=== PATIENT | female | born 1995 | race Caucasian/White ===

== ENCOUNTER 2025-05-03 08:42 | Emergency (ER) | payer MEDICAID ==
[~2025-05-03] VITALS: Ht 157.5 cm; Wt 81.8 kg
[2025-05-03 10:53] LABS: MEAN PLATELET VOLUME 7.8 FL (7.4-10.4); RED CELL DISTRIBUTION WIDTH 13.7 % (11.5-14.5)
[2025-05-03 10:53] LABS: LEUKOCYTE ESTERASE ,URINE NEGATIVE (Neg); NITRITES, URINE NEGATIVE (Neg); OCCULT BLOOD,URINE LARGE (Neg)
[2025-05-03 10:56] LABS: UA COLLECTION TYPE CLN CATCH MIDSTREAM
[2025-05-03 10:58] LABS: SQUAMOUS EPITHELIAL CELL,UR NONE SEEN /LPF (FEW)
[2025-05-03 11:06] LABS: CREATININE 0.53 MG/DL (0.40-0.90); TOTAL CARBON DIOXIDE 29.3 MMOL/L (24-32); eCRCL 124 ML/MIN; eGFR > 90 ML/MIN
--- NOTE | 2025-05-03 11:46 | RADIOLOGY REPORT ---
OB ULTRASOUND <14 WEEKS: HISTORY: Bleeding vaginally TECHNIQUE: Multiple real-time grayscale sonographic images of the pelvis with duplex Doppler color flow, spectral and M-mode analysis. TRANSDUCERS: Transabdominal and transvaginal COMPARISON: None FINDINGS: The uterus measures 10.5 x 4.9 x 6.2 cm The cervix is not visualized Right ovary measures 3.1 x 2.1 x 1.8 cm with normal Doppler color flow. Left ovary measures 4.3 x 2.5 x 3.6 cm with normal Doppler color flow. No intrauterine is visualized. IMPRESSION: No intrauterine is visualized at this time. Clinical correlation advised. Recommend correlation with beta HCG.
--- NOTE | 2025-05-03 12:18 | Physician Documentation ---
History of Present Illness ~ Chief Complaint: Complications Stated Complaint: VAGINAL BLEEDING Time Seen by : 09:24 Mode of Arrival: POV HPI Patient came to the emergency room ambulatory for vaginal bleeding. She is supposed to be five weeks confirmed by the urgent care. Medication Reconciliation Allergies: Coded Allergies: No Known Allergies (Unverified , 05/03/25) Past Medical History Smoking Status: Never smoker Physical Exam Physical Exam Vital Signs: Temperature: 98.0, Heart Rate: 66, Respiratory Rate: 16, BP: 128/77, Pulse Oximetry: 100, Weight: 81.820 Oxygen Flow Rate: 0 Progress Results/Orders Results/Orders Orders - ELIGIO KRISHNA MD US OB (05/03/25 10:25) Completed Orders - ELIGIO KRISHNA MD Cbc/Diff (05/03/25 10:25) CMP (05/03/25 10:25) Hcg Serum Qt (05/03/25 10:25) Abo/Rh (Type Only) (05/03/25 10:25) US OB (05/03/25 10:25) Ua With Microscopic (05/03/25 10:39) Vital Signs 05/03/25 05/03/25 05/03/25 05/03/25 08:46 09:21 10:41 11:23 Temp 98.0 Pulse 69 60 66 Resp 16 18 16 16 B/P (MAP) 132/97 106/58 (74) 128/77 (94) Pulse Ox 99 99 100 O2 Flow Rate 0 0 0 05/03/25 12:22 Temp 98.2 Pulse 63 Resp 18 B/P (MAP) 159/94 Pulse Ox 98 Laboratory Tests Test 05/03/25 10:39 05/03/25 10:41 Urine Specimen Description Cln catch midstream Urine Color Yellow Urine Clarity Slightly cloudy Urine pH 7.5 Urine Specific [place] 1.015 Urine Protein Trace Urine Glucose (UA) Negative Urine Ketones Negative Urine Occult Blood Large H Urine Nitrite Negative Urine Bilirubin Negative Urine Urobilinogen 0.2 Urine Leukocyte Esterase Negative Urine RBC 50-100 Urine WBC 0-4 Urine Squamous Epithelial Cells None seen Urine Bacteria None seen Volume Urine Centrifuged 10 ml Urine Comment White Blood Count 6.8 Red Blood Count 4.14 L Hemoglobin 12.9 Hematocrit 37.7 Mean Corpuscular Volume 91.0 Mean Corpuscular Hemoglobin 31.2 H Mean Corpuscular Hemoglobin Concent 34.3 Red Cell Distribution Width 13.7 Platelet Count 263 Mean Platelet Volume 7.8 Neutrophils (%) (Auto) 73.6 Lymphocytes (%) (Auto) 17.7 L Monocytes (%) (Auto) 6.0 Eosinophils (%) (Auto) 2.0 Basophils (%) (Auto) 0.7 Neutrophils # (Auto) 5.0 Lymphocytes # (Auto) 1.2 Monocytes # (Auto) 0.4 Eosinophils # (Auto) 0.1 Basophils # (Auto) 0.0 CBC Comment Sodium Level 142 Potassium Level 3.7 Chloride Level 109 H Carbon Dioxide Level 29.3 Anion Gap 4 L Blood Urea Nitrogen 7 Creatinine 0.53 Estimated GFR/1.73 m2 > 90 BUN/Creatinine Ratio 13.2 Glucose Level 92 Calcium Level 8.4 L Total Bilirubin 0.3 Aspartate Amino Transf (AST/SGOT) 21 Alanine Aminotransferase (ALT/SGPT) 35 Alkaline Phosphatase 68 Total Protein 6.9 Albumin 3.3 L Globulin 3.6 Albumin/Globulin Ratio 0.9 L HCG Beta Subunit 24 Chemistry Comments Medical Decision Making Findings ER Course/Med. Decision Making REVIEW of RECORD(S): Previous medical records here and/or external medical records, such as that provided directly by the patient, by EMS and/or outside medical facilities, if available, were reviewed. COMORBIDITIES probable MDM During the physical examination, the findings suggestive of acute life- threatening condition such as JVD, tracheal deviation, acidotic breathing, noisy stridorous breath sounds, pulses paradoxus, muffled heart sounds, unequal breath sounds, abdominal rigidity and rebound tenderness, focal neurological deficits, cool clammy skin, severe hypotension, severe tachycardia or bradycardia are absent. Patient presenting for vaginal bleeding . Vital signs reviewed. Patient is hemodynamically stable and does not meet SIRS criteria. Patient appears nontoxic on exam. Physical examination unremarkable and ultrasound of the pelvis does not reveal any gestational sac. Beta hCG is also pretty low. I am thinking is as it is probably very very early or non at all. TREATMENT/DISPOSITION: The patient's presentation is most consistent with vaginal bleeding non /very early Prior to discharge I independently reviewed the patients past medical history, clinical risk factors, comorbidities, and social determinants of health and diagnostic studies. The patient appears to be a safe discharge home with close outpatient PCP follow-up I had extensive discussion with patient regarding management, disposition and follow up. Potential symptom etiology was discussed, and shared decision making occurred. They will return immediately if symptoms worsen, do not improve, or they have any further concerns. Prior to discharge all questions were addressed. The patient is aware that the purpose of this visit was to screen for an acute medical emergency requiring emergent stabilization. Chronic and occult conditions, including malignancies, have not been ruled out. If patient is unable to arrange follow-up as stated in the discharge instructions and further discussed with the patient directly, or their symptoms worsen/become more concerning, they are to return to the ER for reassessment immediately. Prior to leaving the department, the patient has a plan for discharge, has decision making capacity, and acknowledges an un derstanding of the verbal and written discharge instructions. SOCIAL DETERMINANTS: Patient demonstrates no obvious challenges to following up as an outpatient although did consider whether patient had any barriers to access care including homelessness, Food insecurity, Mental health, Substance abuse, Disabilities, Limited access to medical care, Difficulty finding transport, Insurance issues, Refusal of care or testing due to cost concerns. MEDICAL SCREENING: I have discussed with the patient the non-definitive nature of the emergency screening exam, diagnosis and the possibility of a variety of conditions which may present in atypically benign fashion and stressed the importance of close follow-up for definitive diagnosis and treatment. We discussed signs and symptoms that should be watched for which might indicate a more serious or new condition that would benefit from emergency reevaluation and the patient has verbalized understanding to this and my other detailed discharge instructions and promises compliance. I have referred him back to his primary physician of course for a more detailed evaluation and more definitive diagnose s. DISCLAIMER: Inadvertent spelling and grammatical errors are likely due to EMR/dictation software use and do not reflect on the overall quality of patient care. Note that the electronic time recorded on this note does not necessarily reflect the actual time of the patient encounter. Departure Disposition: 01 HOME / SELF CARE / HOMELESS Impression: Primary Impression: Vaginal bleeding Additional Impression: Low maternal serum human chorionic gonadotropin (hCG) Condition: Stable Additional Instructions: Thank you for coming to our Emergency Department today. Please do follow up with your primary care OB Gyne specialist. Please ask your nurse or provider if you have questions about your care today and do not leave until all your questions have been answered. Please use any medications given as directed and follow-up with your doctor (or the doctor you were referred to) in the next 1-3 days. Your primary care doctor can help to coordinate outpatient specialty care and provide authorization for specialty referral as needed. If you do not have a primary care doctor you may follow up at a [facility]. You may also use motrin and tylenol as needed for fever and/or pain unless instructed otherwise by your provider or nurse. Indications for more urgent follow-up have been discussed, but you may return to the Emergency Department at ANY time for any worrisome or worsening symptoms. County Facilities: [facility] Facilities: [facility]: [facility] [place] Address:[address] [place] [address] [facility]: [place] Address:[address] [place] [id number] [facility]: [facility] Address:[address] [place] [address] [facility] Address:[address] [place] [address] Registration Billing Pharmacy Referrals [facility] Address:[address] [place] [address] Referrals: NO PRIMARY CARE PROVIDER (PCP) Education Educated: Patient Educated regarding: diagnosis, need for follow up Signature Scribe Signature: x Attestation: ELIGIO Murphy MD May 03, 2025 12:18
[2025-05-03 12:22] VITALS: BP 159/94; PULSE 63; RESP 18; TEMP 98.2; O2SAT 98
== END 2025-05-03 12:23 | disposition home or self-care (01) ==
LOC: EDBD 08:44 → ER 08:44
DX: O46.91 Antepartum hemorrhage, unspecified, first trimester (principal); O02.81 Inappropriate change in quantitative human chorionic gonadotropin (hCG) in early pregnancy; Z3A.01 Less than 8 weeks gestation of pregnancy
CPT/HCPCS: 36415; 76801; 80053; 81001; 84702; 85025; 86900; 86901; 99284